=== PATIENT | male | born 1990 | race Caucasian/White ===

== ENCOUNTER → 2018-06-28 | Outpatient (CLI) | payer BC ==
--- NOTE | 2018-06-28 11:22 | US ---
EXAMINATION TYPE: US abdomen complete DATE OF EXAM: 06/28/2018 COMPARISON: NONE CLINICAL HISTORY: R11.0 NAUSEA. Abdomen pain after eating, loss of appetite, IBS EXAM MEASUREMENTS: Liver Length: 15.9 cm Gallbladder Wall: 0.2 cm CBD: 0.3 cm Spleen: 12.3 cm Right Kidney: 11.5 x 6.6 x 5.5 cm Left Kidney: 11.2 x 5.5 x 5.5 cm Pancreas: visualized portions wnl, limited by overlying midline bowel gas Liver: Within normal limits Gallbladder: wnl Evidence for sonographic Osorio's sign: no CBD: visualized portions wnl, limited by overlying bowel gas Spleen: 3.5 x 4.5 x 3.3cm irregular hypoechoic cystic area directly adjacent to the spleen appears p eripherally calcified. Right Kidney: wnl Left Kidney: wnl Upper IVC: wnl Abd Aorta: visualized portions wnl, limited by overlying midline bowel gas The liver is homogenous. The intrahepatic portion of the IVC and proximal abdominal aorta are within normal limits. There is no evidence of cholelithiasis. Common bile duct is unremarkable. The visu alized portions of the pancreas are homogenous. Kidneys are symmetric and free of hydronephrosis. No renal lesions are seen. IMPRESSION: 1. Peripherally calcified structure directly adjacent to the spleen could represent calcified acquire d benign splenic cyst, mesenteric mass, or less likely peripherally calcified and thrombosed splenic arterial pseudoaneurysm. This could be further assessed with CT with contrast. 2. No sonographic evidence of cholelithiasis or acute cholecystitis.
== END | disposition home or self-care (01) ==
LOC: RADUSWWP 09:49
PROVIDERS: ATTEND Family Medicine
DX: R93.3 Abnormal findings on diagnostic imaging of other parts of digestive tract (principal)
CPT/HCPCS: 76700

== ENCOUNTER → 2018-07-10 | Outpatient (CLI) | payer BC ==
--- NOTE | 2018-07-10 10:16 | CT ---
EXAMINATION TYPE: CT abdomen w con DATE OF EXAM: 07/10/2018 COMPARISON: Correlation ultrasound 06/28/2018 HISTORY: 27-year-old male Splenomegaly, not elsewhere classified TECHNIQUE: Contiguous axial scanning of the abdomen and pelvis following administration of 100 ml Iso massiel 300 IV contrast. Delayed images through the kidneys and coronal/sagittal reconstructions perform ed. CT DLP: 1296 mGycm Automated exposure control for dose reduction was used. FINDINGS: Heart normal size without pericardial effusion. Lung bases clear without pleural effusion. A 1 cm focally arterially enhancing lesion anterior left liver lobe equilibrates on the delayed kidne y images suggesting an area of vascular shunting or large filling hemangioma. A small FNH is also in the differential. No other focal liver lesion. No biliary ductal dilatation. Portal venous system is patent. Gallbladder, adrenal glands, kidneys, and pancreas appear within normal limits. Small 1.2 cm cyst lower pole of the spleen in additional multiple adjacent cysts in the upper pole of the spleen which would like her to get dimension of 11.2 cm wide by 5.4 cm AP by 4.9 cm craniocaudal . The largest locular component measures 4.9 cm and the cysts show varying thin peripheral wall calci fication. No dilated small bowel, free fluid, or free air. Scattered nonenlarged and some borderline to mildly enlarged mesenteric lymph nodes measuring up to 1 .1 cm in the left mid abdomen. The remaining lymph nodes are relatively small. Normal appendix partially visualized. Mild to moderate stool burden. No pericolonic inflammatory change seen within the visualized upper an d mid abdomen. Bones: Mild multilevel degenerative disc disease. Limbus L5 vertebra. IMPRESSION: 1. MULTIPLE ADJACENT CYSTS IN THE UPPER POLE OF THE SPLEEN DEMONSTRATE THIN WALL CALCIFICATIONS, POSS IBLE ACQUIRED BENIGN SPLENIC CYSTS SUCH IN THE SETTING OF A REMOTE SPLENIC INJURY. THE OVERALL AGG REGATE DIMENSION IS UP TO 11.2 CM WITH INDIVIDUAL CYSTS MEASURING UP TO 4.9 CM. 2. A 1 CM ARTERIAL ENHANCING LESION ANTERIOR LEFT LIVER LOBE. DIFFERENTIAL CONSIDERATIONS INCLUDE TINA IGN ENTITIES SUCH VASCULAR SHUNTING, FLASH FILLING HEMANGIOMA, AND A SMALL FNH. 3. SOME BORDERLINE TO MILDLY ENLARGED MESENTERIC LYMPH NODES PROBABLY REACTIVE/POST INFLAMMATORY.
== END | disposition home or self-care (01) ==
LOC: RADCTMAIN 08:43
PROVIDERS: ATTEND Family Medicine
DX: D73.4 Cyst of spleen (principal); K76.9 Liver disease, unspecified; D18.09 Hemangioma of other sites; D73.89 Other diseases of spleen
CPT/HCPCS: 74160; Q9967

== ENCOUNTER → 2020-06-08 | Outpatient (CLI) | payer BC ==
[2020-06-08 20:46] LABS: African American GFR (CKD) 115.7 (60.0-200.0); Albumin 4.8 g/dL (3.80-4.90); Albumin/Globulin Ratio 2.67 (1.60-3.17); Anion Gap 5.8 mmol/L (4.00-12.00); Calcium 9.8 mg/dL (8.7-10.3); Carbon Dioxide 30.2 mmol/L (21.6-31.8); Chol/HDL Ratio 3.25; Globulin 1.8 g/dL (1.6-3.3); LDL Cholesterol,Calculated 85.6 mg/dL (0.0-131.0); Non-African American GFR(CKD) 99.8 (60.0-200.0); Potassium 4.9 mmol/L (3.5-5.5); Total Bilirubin 0.6 mg/dL (0.2-1.2); Total Protein 6.6 g/dL (6.2-8.2); VLDL Calculation 13.4 mg/dL (5.00-40.00)
[2020-06-09 17:07] LABS: Hepatitis A Antibody IgM Non-Reactive (Non-Reactive); Hepatitis B Core IgM Non-Reactive (Non-Reactive); Hepatitis B Surface Antigen Non-Reactive (Non-Reactive); Hepatitis C IgG Antibody Non-Reactive (Non-Reactive)
== END | disposition home or self-care (01) ==
LOC: LABWHC1 10:45
PROVIDERS: ATTEND Internal Medicine
DX: Z00.00 Encounter for general adult medical examination without abnormal findings (principal); G47.00 Insomnia, unspecified
CPT/HCPCS: 36415; 80053; 80061; 80074

== ENCOUNTER → 2020-06-23 | Outpatient (CLI) | payer BC ==
--- NOTE | 2020-06-23 12:20 | US ---
EXAMINATION TYPE: US liver DATE OF EXAM: 06/23/2020 COMPARISON: NONE CLINICAL HISTORY: Abnormal Liver Function R94.5. 1 episode of elevated LFT's EXAM MEASUREMENTS: Liver Length: 16.8 cm. This is enlarged. Normal less than 15.5 cm. Gallbladder Wall: 0.3 cm CBD: 0.5 cm Right Kidney: 11.8 x 6.1 x 5.3 cm Pancreas: wnl Liver: wnl Gallbladder: neck fold seen, wnl Evidence for sonographic Osorio's sign: no CBD: wnl Right Kidney: wnl IMPRESSION: 1. Mild hepatomegaly.
== END ==
LOC: RADUSWWP 11:09
PROVIDERS: ATTEND Internal Medicine
DX: R16.0 Hepatomegaly, not elsewhere classified (principal)
CPT/HCPCS: 76705

== ENCOUNTER → 2020-07-09 | Outpatient (CLI) | payer BC ==
--- NOTE | 2020-07-09 11:36 | CONS ---
CONSULTATION DATE OF SERVICE: 07/09/2020 This 29-year-old gentleman had been evaluated in the sleep center for possible obstructive sleep apnea-hypopnea syndrome. HISTORY OF PRESENT ILLNESS/SLEEP-WAKE EVALUATION: Patient usual sleep schedule from 10 p.m. until midnight and he gets up at 8:15 a.m. No problem with falling asleep. Patient usually sleeps on the back and side position. He has loud snoring and witnessed episodes of stopped breathing during sleep according to his girlfriend. The patient wakes up from sleep up to 5 times with up to 5 episodes of nocturia, positive history of panic attacks at night, awakenings with dry mouth. In the morning, patient wakes up tired, has problems with the memory, irritability, anxiety, worry about his sleep. [place] Sleepiness Scale is 7. PAST MEDICAL HISTORY: Positive for irritable bowel syndrome, fatty liver, episodes of depression and anxiety. PAST SURGICAL HISTORY: Tonsillectomy, adenoidectomy. MEDICATIONS: Imodium out of the counter every day. SOCIAL HISTORY: Positive for smoking for 2 years, quit 4 years ago. Alcohol consumption occasional. FAMILY HISTORY: Sleep apnea, diabetes, depression, hyperlipidemia, arthritis. REVIEW OF SYSTEMS: Multiple awakenings from sleep, loud snoring. The patient takes naps on days off at 3 p.m. PHYSICAL EXAMINATION: GENERAL: gentleman without distress. VITAL SIGNS: BP 158/81, HR 85, RR 16, height 5 feet 11-1/4 inches, body mass index 44.3, temperature 97.7, oxygen saturation at room air 98%. HEENT: PERRLA, EOMI. Oropharynx extremely low position of soft palate. Mallampati 4. Extremely wide neck 19-3/4 inches in circumference. NECK: Supple, no JVD. Thyroid is not palpable. LUNGS: Clear to percussion and to auscultation. Good air exchange. No wheezing or rhonchi. HEART: S1, S2 regular. No murmurs, gallops, or rubs. ABDOMEN: Obese. EXTREMITIES: No clubbing or cyanosis. 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 Cranial nerves 2 to 7 intact. There is no fasciculation or atrophy. noted. No focal deficits observed. IMPRESSION: 1. Loud snoring, witnessed episodes of stopped breathing during sleep, multiple awakenings from sleep, extremely low position of soft palate, Mallampati 4, wide neck, obstructive sleep apnea-hypopnea syndrome. 2. Hypertension in the office. 3. Irritable bowel syndrome. 4. History of fatty liver disease. 5. Status post tonsillectomy. 6. Status post adenoidectomy. PLAN: 1. Home sleep apnea test for evaluation of patient breathing during sleep and to confirm obstructive sleep apnea-hypopnea syndrome. 2. CPAP/BiPAP titration if sleep study confirms obstructive sleep apnea-hypopnea syndrome. 3. Preferable position during sleep on the side. 4. No driving if patient feels any sleepiness. 5. I will see patient for follow up visit to explain results of testing and following plan. Thank you very much for referring this patient for consultation. Sincerely, Merrill Dumas MD, PhD, FAASM Diplomat of [employer] [employer] Consultant [facility] [place] MMODL / NOLAN: [id number] /
== END | disposition home or self-care (01) ==
LOC: SLEEP 10:22
PROVIDERS: ATTEND Internal Medicine
DX: G47.33 Obstructive sleep apnea (adult) (pediatric) (principal); I10 Essential (primary) hypertension; K58.9 Irritable bowel syndrome, unspecified; Z90.89 Acquired absence of other organs; Z87.19 Personal history of other diseases of the digestive system
CPT/HCPCS: 99211

== ENCOUNTER → 2020-08-31 | Outpatient (CLI) | payer BC ==
[2020-08-31 10:43] VITALS: BP 163/101; PULSE 85; RESP 16; TEMP 98.3
--- NOTE | 2020-08-31 11:26 | P.PAINCN ---
History of Present Illness - Reason for Consult Consult date: 08/31/20 - History of Present Illness Nacho is a 29-year-old gentleman who presents today for an initial consult secondary to right-sided neck pain. He has had this pain for a few months, he had made an appointment to see us in a few months back but then contracted Covid so he was home for a little while. 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 He reports that one day whe n he was exercising he developed a sharp severe pain in the right side of his neck that extended from the posterior cervical spine to the collarbone on the right. There was some pain into the collarbone and chest wall and into the right shoulder. There is no pain that extended beyond their into the right arm. There is nothing the left arm. There is no weakness in his hands or his service cleaner strength. There is no lower extremity weakness numbness or tingling. The pain was worse with any movement of his head which included flexion and extension. During the Covid quarantine he did not exercise and begin to feel a little bit better. He had seen Dr. french would order an MRI of the cervical spine. The MRI shows a small disc bulge at the right C5-C6 level. He was using nonsteroidal anti-inflammatories as well as muscle relaxants. He has a history of opioid abuse in the past and does not want any opiates. He continues to work full-time and is exercising regularly. His exercise routines involved very heavy lifting of greater than 500 pounds of lifting and squatting. His blood pressure slightly elevated today. He also was recently diagnosed with severe sleep apnea and is not received his CPAP machine yet, he like to have that as soon as possible. He also had questions regarding exercises as well as dietary changes, he reports that he's been taking sodium tablets to try to improve his muscle health. He is inquiring about using potassium supplements as well. I've asked him to follow- up with his primary care physician to evaluate his sodium and potassium levels. This is not a my specialty and I believe he needs further follow-up to be evaluated if these supplements are useful for him. I explained that his blood pressure is significantly elevated today at 163/100 and this may be reason for that along with his untreated sleep apnea. Review of Systems: Denies any New chest pain, short of breath, Nausea/vomitting, abdominal pain, bowel or bladder incontinence, or any overt new neurologic symptoms in the upper or lower extremities outside of what is noted in the HPI Past Medical History Past Medical History: GERD/Reflux, Musculoskeletal Disorder, Sleep Apnea/CPAP/BIPAP Additional Past Medical History / Comment(s): Sleep apnea testing ongoing. Mild fatty liver. Hx Covid 07/30/20. c/o neck pain radiating Rt shoulder pain, C5-6 bulge per MRI. History of Any Multi-Drug Resistant Organisms: None Reported Past Surgical History: Adenoidectomy, Tonsillectomy Additional Past Surgical History / Comment(s): Colonoscopy Past Anesthesia/Blood Transfusion Reactions: No Reported Reaction Past Psychological History: No Psychological Hx Reported Smoking Status: Former smoker Past Alcohol Use History: Occasional Additional Past Alcohol Use History / Comment(s): Smoked 2-3 years, quit 2016. Past Drug Use History: Prescription Drug Abuse Additional Drug Use History / Comment(s): hx in his 20's, none since 2017 Medications and Allergies Home Medications Medication Instructions Recorded Confirmed Type Collagen Powder 1 applic PO DAILY 08/27/20 History Ibuprofen [Motrin Ib] 800 mg PO Q8H PRN 08/27/20 08/27/20 History Loperamide HCl [Imodium A-D] 2 mg PO DIRECTED PRN 08/27/20 08/27/20 History Multivitamins, Thera [Multivitamin 1 tab PO DAILY 08/27/20 08/27/20 History (formulary)] Omeprazole Magnesium [PriLOSEC OTC] 20 mg PO DAILY 08/27/20 08/27/20 History Sodium Chloride Tab 394 mg PO DIRECTED PRN 08/27/20 08/27/20 History Turmeric/Apple Vinega/Enma 2 tab PO DAILY 08/27/20 History tiZANidine [Zanaflex] 4 mg PO DIRECTED PRN 08/27/20 08/27/20 History Allergies Allergy/AdvReac Type Severity Reaction Status Date / Time No Known Allergies Allergy Verified 08/27/20 15:49 Physical Exam Vitals: Vital Signs Temp Pulse Resp BP Pulse Ox 08/31/20 10:37 98.3 F 85 16 163/101 95 PHYSICAL EXAM: Constitutional: Awake and alert no distress Cardiovascular exam: Regular rate, no lower extremity edema, palpable pulses bilaterally Respiratory exam: No audible wheezing, no accessory muscle usage Abdominal exam: Soft nontender Muscular skeletal exam: - Cervical spine: Nontender to palpation bilaterally. Range of motion is not limited. Spurling is negative bilateral. Facet loading is negative bilaterally. No tenderness to palpation over the clavicles bilaterally. There is no tenderness over the SCM muscles or over the scalene muscles. - Bilateral shoulder range of motion is not limited and do not cause pain. - Lumbar spine: Preserved lumbar lordosis. No changes in skin. Nontender palpation bilateral. Patient has full range of motion in flexion and extension as well as lateral sidebending. Straight leg raise is negative. Facet loading is negative. Nontender over the SI joints Neuro exam: Normal sensation bilateral upper and lower extremities. Deep tendon reflexes are 2+ bilaterally. Hull's is negative Psychiatric exam: Cooperative, good insight Assessment and Plan Assessment: #1 cervical myofascial pain #2 cervical degenerative disc disease #3 cervical radiculopathy #4 severe obstructive sleep apnea Plan: At this point the patient reports that his pain is under good control, he has a VAS of 1 or 2 out of 10 regularly. He is working on his exercise routine to avoid any significant strain. In my opinion I discussed with him that his MRI findings do not correlate with his symptoms. He has no symptoms going down his arm or into his hand. If he had this severe pain in the neck was likely musculoskeletal in nature given the extent of his exercise routine. That lifting greater than 500 pounds since early plus a lot of strain on the cervical spine muscles at the exception of the left. I would avoid lifting heavy weights but the patient likely continue doing these at this is his sport of choice. I've explained that this pain may come back and if it's the same pain is had in the past is likely due to a musculoskeletal injury. We are happy to see him at any time. If the pain radiates into the shoulder into the arm that may be a sign of further symptoms from his cervical radiculopathy and then he would be a candidate for a cervical epidural steroid injection. I have spent 51 minutes on patient care today. The time was used to review the medical records including relevant urine studies and Prescription history (MAPs), review of the available imaging, evaluation and examination of the patient, coordination of care with the medical staff and if applicable referring physicians, as well as creation of the medical record. NO Prescriptions were given on today's visit PQRS Measure Charge Sheet PQRS Narrative: Blood Pressure 163/101 Pain Intensity [Neck] 1 Scale Used Numeric (1 - 10) Hx Alcohol Use (MH) Yes: occ Home Medications: Ambulatory Orders Collagen Powder 1 applic PO DAILY 08/27/20 Ibuprofen [Motrin Ib] 800 mg PO Q8H PRN 08/27/20 Loperamide HCl [Imodium A-D] 2 mg PO DIRECTED PRN 08/27/20 Multivitamins, Thera [Multivitamin (formulary)] 1 tab PO DAILY 08/27/20 Omeprazole Magnesium [PriLOSEC OTC] 20 mg PO DAILY 08/27/20 Sodium Chloride Tab 394 mg PO DIRECTED PRN 08/27/20 Turmeric/Apple Vinega/Enma 2 tab PO DAILY 08/27/20 tiZANidine [Zanaflex] 4 mg PO DIRECTED PRN 08/27/20
== END ==
LOC: PNWHC3 10:20
PROVIDERS: ATTEND Hospitalist
DX: M50.10 Cervical disc disorder with radiculopathy, unspecified cervical region (principal); M79.18 Myalgia, other site; G47.33 Obstructive sleep apnea (adult) (pediatric); K21.9 Gastro-esophageal reflux disease without esophagitis; Z87.891 Personal history of nicotine dependence
CPT/HCPCS: 99211

== ENCOUNTER → 2020-10-13 | Outpatient (CLI) | payer BC ==
--- NOTE | 2020-10-13 13:41 | XR ---
Lumbar spine HISTORY: Trauma one week prior, M 54.5 3 views of the lumbar spine No comparisons There is a slight spinal curvature. Retrolisthesis grade 1 L5-S1. Superior anterior endplate of L5 is irregular, possibly congenital abnormality, limits vertebral. Loss of disc height present at interve rtebral levels. Probable Schmorl's node present superior endplate L3. Sclerosis present in the parish visitor ior elements of the lumbosacral junction consistent with facet arthropathy, there is multilevel spond ylosis. IMPRESSION: Degenerative disc disease and facet arthropathy. Possible limbus vertebra L5, correlate t o exclude history trauma, superior endplate fracture, consider lumbar MRI or bone scan, CT. Mild spin al curvature.
== END | disposition home or self-care (01) ==
LOC: RADXRMAIN 12:36
PROVIDERS: ATTEND Physician Assistant
DX: M51.36 Other intervertebral disc degeneration, lumbar region (principal); M12.88 Other specific arthropathies, not elsewhere classified, other specified site
CPT/HCPCS: 72100

== ENCOUNTER → 2020-11-11 | Outpatient (CLI) | payer BC ==
--- NOTE | 2020-11-11 20:27 | SFUN ---
SLEEP CENTER FOLLOW UP NOTE DATE OF SERVICE: 11/11/2020 29-year-old gentleman has been followed in Sleep Center for treatment of obstructive sleep apnea-hypopnea syndrome. Today is his 1st visit after patient started to use CPAP equipment. Previously, patient had a sleep study, which showed extremely severe obstructive sleep apnea with apnea-hypopnea index 74.1, and oxygen desaturation to 65%. Subsequently, patient was started on the BiPAP. When he is using BiPAP, he sleeps better and feels more refreshed in the morning after awakening. His [place] Sleepiness Scale today is 9. I checked BiPAP unit, maximal inspiratory pressure 21, minimal expiratory pressure 12, average pressure 7.3 over 13.3 cm of water, usage for the last month, 22/30 nights but only 7 nights more than 4 hours. Leak is 32 L/minute, which is borderline. Apnea- hypopnea index only 2.9, which is totally normal. MEDICATIONS: Imodium. PHYSICAL EXAM: Patient in no distress, BP 148/94, HR 76, RR 15, weight 313, temperature 98.0, oxygen saturation at room air 97%. HEENT: Oropharynx, extremely low position of soft palate. Mallampati IV. PERRLA, EOMI, evaluation of oropharynx showed tongue protrudes midline. NECK: Supple, no JVD. Thyroid is not palpable. LUNGS: Clear to percussion and to auscultation. Good air exchange. No wheezing or rhonchi. HEART: S1, S2 regular. No murmurs, gallops, or rubs. ABDOMEN: Obese. Soft and nontender. Bowel sounds are present. No organomegaly appreciated. EXTREMITIES: No clubbing or cyanosis. 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 Cranial nerves 2 to 7 intact. There is no fasciculation or atrophy. noted. No focal deficits observed. ASSESSMENT: 1. Extremely severe obstructive sleep apnea-hypopnea syndrome; apnea-hypopnea index 74.1 with oxygen desaturation to 65% normal respiration on BiPAP. Borderline compliance. The patient needs increased time for usage of BiPAP equipment during the night. 2. Obesity. 3. Hypertension in the office again today. 4. History of irritable bowel syndrome. 5. History of fatty liver disease. 6. Status post tonsillectomy. 7. Status post adenoidectomy. PLAN: 1. Patient will continue to use PAP equipment every night for the whole night. 2. Sleep hygiene with regular time in bed for at least 7-1/2 to 8 hours. 3. Precautions related to driving. No driving if feeling sleepiness. 4. I will maintain all necessary prescription for PAP supplies including mask, tube, filters. 5. Watching weight. 6. Follow-up visit in 6 months or earlier if patient has any problems. Thank you very much for allowing me to participate in management of your patient. Sincerely, Merrill Dumas MD, PhD, FAASM Diplomat of [employer] Sleep Medicine Board of [employer] Software Team Leader of [facility] [place] MMODL / IJN: [id number] /
== END ==
LOC: SLEEP 11:43
PROVIDERS: ATTEND Internal Medicine
DX: G47.33 Obstructive sleep apnea (adult) (pediatric) (principal); G47.36 Sleep related hypoventilation in conditions classified elsewhere; E66.9 Obesity, unspecified; I10 Essential (primary) hypertension; Z90.09 Acquired absence of other part of head and neck; Z99.89 Dependence on other enabling machines and devices; Z87.19 Personal history of other diseases of the digestive system

== ENCOUNTER → 2022-04-11 | Outpatient (CLI) | payer BC ==
[2022-04-11 13:37] VITALS: BP 149/73; PULSE 108; RESP 16; TEMP 98.8
--- NOTE | 2022-04-11 15:02 | P.PAINPG ---
PQRS Measure Charge Sheet Comment: A 31 yr old male with a history of severe and chronic low back pain secondary to lumbar DDD and spondylosis with facet arthropathy without myelopathy presents today for LBP evaluation. Pain level is currently at 6 /10 in intensity, constant, localized in the lower lumbar spine, dull/ achy in character w adia oting towards the R glute. Pain is provoked by lifting. Pain is alleviated with PT which he will start this week, massage therapy semi weekly, chiropractic treatments semi weekly, ice, medications, topicals, home exercise regimen as tolerated. Interventional pain procedures completed include Denies Patient is currently on Prednisone taper, [place], Ibu prn Patient denies any side effects of the medication(s), denies excessive drowsiness or sleepiness, denies suicidal ideation and reports that the current pain medication is helping to control the pain and improve activities of daily living. Patient denies any motor or sensory deficits. Patient denies any fever or night sweats, denies any change in the bowel movements or urination. Physical Examination: -Constitutional: Cooperative. Not in acute distress . - Neurologic: Cranial nerve II to XII intact. No focal neurological deficits. - Psychatric: Alert & oriented x 3. Matching mood & appropriate affect. Judgment and insight intact. - Musculoskeletal: Cervical spine: Muscle bulk/ tone/ strength in the bilateral upper extremities normal Vertebral body tenderness to palpation over Spurling test positive Distraction test positive Facet loading test positive Thoracic spine Muscle bulk / tone/ strength in the bilateral paraspinal muscles normal Vertebral body tender to palpation over Facet loading test positive Lumbar spine: Motor bulk/ tone/ strength lower extremities , thigh and legs : 5/5 Deep tendon reflexes : Normal Knee Jerk. Normal Ankle Jerk . Vertebral body tenderness to palpation over L5 Lumbar Facet Loading Test positive Straight Leg Raise: positive at 30 degrees right side/ left side Gaenslen's Test positive Sacral spine : Severe tenderness over the Sacroiliac joint: right side / left side Range of motion: Flexion of the lumbar spine <60 degrees Range of motion: Extension of the lumbar spine <20 degrees Gaenslen's Test positive Yuri test: positive right side / left side Thigh Thrust Test Sacral Thrust Test Imaging: x ray of the lumbar spine from 10/13/20 reviewed MRI without contasrt of the lumbar spine from 03/23/22 reviewed Assessment and plan: Chronic LBP secondary to lumbar retrolisthesis, spondylosis with facet arthropathy without myelopathy Recommendation of R paramedian ALEX L5-S1. May need a series of injections, up to 3 within a 6 mo period, for optimal pain relief. Risks, benefits of procedure discussed and pt verbalized understanding. Denies anticoagulant use or medical history of diabetes. All patient questions answered I have spent less than 30 minutes on patient care today. Dr Kelley was available by phone for the evaluation of this patient. The time was used to review the medical records including relevant urine studies and Prescription history (MAPs), review of the available imaging, evaluation and examination of the patient, coordination of care with the medical staff and if applicable referring physicians, as well as creation of the medical record - Pain Location Lower Back Non-Pharmacological Interventions: Chiropractic Treatment, Home Exercise, Ice, Inactivity, Massage, Position/Reposition, Sitting, Stretching Pharmacological Interventions: PRN Medication, Topical Medication PQRS Narrative: Hx Alcohol Use (MH) Yes: occ Home Medications: Ambulatory Orders Collagen Powder 1 applic PO DAILY 08/27/20 Ibuprofen [Motrin Ib] 800 mg PO Q8H PRN 08/27/20 Loperamide HCl [Imodium A-D] 2 mg PO DIRECTED PRN 08/27/20 Multivitamins, Thera [Multivitamin (formulary)] 1 tab PO DAILY 08/27/20 Omeprazole Magnesium [PriLOSEC OTC] 20 mg PO DAILY 08/27/20 Sodium Chloride Tab 394 mg PO DIRECTED PRN 08/27/20 Turmeric/Apple Vinega/Enma 2 tab PO DAILY 08/27/20 tiZANidine [Zanaflex] 4 mg PO DIRECTED PRN 08/27/20 Controlled Substance Measures - Controlled Substance Measures Is patient prescribed a controlled substance at discharge?: No
== END ==
LOC: PNWHC3 12:59
PROVIDERS: ATTEND Specialist
DX: M47.816 Spondylosis without myelopathy or radiculopathy, lumbar region (principal); G89.29 Other chronic pain; M51.36 Other intervertebral disc degeneration, lumbar region
CPT/HCPCS: 99211

== ENCOUNTER 2022-05-17 13:17 | Day surgery (SDC) | payer BC ==
[2022-05-12 15:26] VITALS: BMI 42.0
[2022-05-17] MEDS ORDERED: LIDOCAINE 1% (10MG/ML) FOR IV START INTRADERMA PRN (13:25)
[2022-05-17] MEDS ORDERED: LACTATED RINGERS 1,000 ML IV SCH (13:25)
[2022-05-17 13:31] VITALS: TEMP 98.6
[2022-05-17 13:40] LABS: Glucose,Whole Blood 94 mg/dL (70-110)
[2022-05-17] MEDS ORDERED: methylPREDNISolone ACETATE 80 MG/ML 1 ML VIAL ONE (14:22)
[2022-05-17] MEDS ORDERED: fentaNYL (PF) 50 MCG/ML 2 ML AMP ONE (14:22)
[2022-05-17] MEDS ORDERED: MIDAZOLAM 2 MG/2 ML VIAL ONE (14:22)
[2022-05-17] MEDS ORDERED: IOPAMIDOL M200 10 ML VIAL ONE (14:22)
--- NOTE | 2022-05-17 14:32 | P.PCN ---
Date of Procedure: 05/17/22 Procedure(s) Performed: PREOPERATIVE DIAGNOSIS: 1- Lumbar Degenerative Disc Diseases 2-Lumbar spondylosis with Facet arthropathy without myelopathy. 3-lumbar radiculopathy POSTOPERATIVE DIAGNOSIS: Same as preop diagnosis. PROCEDURE 1. Lumbar epidural steroid injection under fluoroscopic guidance at the L5-S1 level. (Fluoroscopy imaging was available in radiology department) 2. Lumbar epidurogram. ANESTHESIA: moderate sedation with intravenous Versed 2 mg ,and fentanyle 100 Mcg Sedation start time : 1424 Sedation end time : 1428 EBL: Minimal PROCEDURE INDICATION: The patient with low back pain and radiculitis symptoms unresponsive to conservative treatment. Fluoroscopy was used to optimize visualization of the needle placement and to maximize safety. PROCEDURE DESCRIPTION / TECHNIQUE: The patient was seen and identified in the preoperative area. Risks, benefits, complications including but not limited to infections ,bleeding ,allergic reaction to the medications ,nerve damage and not complete pain releife , and alternatives were discussed with the patient. The patient agreed to proceed with the procedure and signed the consent. IV was started, and vital signs were stable. Patient was taken to the OR and time out was completed. The patient was placed in the prone position on procedure table and a pillow was placed under the abdomen to reduce lumbar lordosis. The lumbosacral area was prepped and draped in the usual sterile fashion.ere closely monitored during the procedure. Conscious sedation was used during the procedure to decrease patients anxiety. Vital signs was monitered during the entire procedure. Using anterior-posterior fluoroscopy, the L5-S1 interlaminar space was identified and the skin over this site was marked and then infiltrated with 1% lidocaine subcutaneously. Subsequently, a 20-gauge Tuohy epidural needle was inserted and advanced toward the epidural space using the ``Loss of resistance technique and guided by AP and lateral fluoroscopy. The correct needle position in the epidural space was verified with the injection of 2 mL of the water soluble contrast dye Isovue 200 contrast and observing an excellent epidurogram with the epidural spread of the dye, after negative aspiration for blood and CSF and in the absence of paresthesias. Again after negative aspiration, a 6 ml mixture containing 80 mg of Depo-medrol ( Preservetive Free ), and 2 ml of preservative free Normal Saline, and 2 ml of preservative free lidocaine 1% solution was injected and a washout of epidurogram was seen. Needle was withdrawn intact, skin was cleansed, and bandages were applied. COMPLICATIONS: None DISPOSITION / PLANS: The patient was placed in a supine position and transferred to the recovery area in a stable condition for observation. There was no evide nce of lower extremity motor or sensory deficit after the procedure. Patient was discharged from the recovery room after meeting discharge criteria. Home discharge instructions were given to the patient by the staff. The patient was reexamined prior to discharge. The patient will schedule a follow up in the clinic in 2-4 weeks.
[2022-05-17] MEDS ORDERED: IV FLUID CONTINUATION 600 ML IV ONE (14:35)
[2022-05-17 14:41] VITALS: RESP 18
[2022-05-17 14:58] VITALS: BP 141/83; PULSE 84
--- NOTE | 2022-05-17 15:07 | FL ---
EXAMINATION TYPE: FL guided pain mgmt statistic DATE OF EXAM: 05/17/2022 CLINICAL HISTORY: Low back pain. TECHNIQUE: Fluoroscopy. COMPARISON: None. FINDINGS: Fluoroscopic guidance was provided during pain relief procedure performed by Dr. Kelley . A total of 1 seconds of fluoroscopic time was utilized during the procedure and 1 spot images are acquired. Single image acquired shows needle localization at level of lower lumbar spine . IMPRESSION: As Above.
== END 2022-05-17 15:08 | disposition home or self-care (01) ==
LOC: ORPAIN 13:17
PROVIDERS: ATTEND Specialist
DX: M51.16 Intervertebral disc disorders with radiculopathy, lumbar region (principal); M47.26 Other spondylosis with radiculopathy, lumbar region
CPT/HCPCS: 62323

== ENCOUNTER 2022-09-20 11:53 | Day surgery (SDC) | payer BC ==
[2022-09-15 12:29] VITALS: BMI 44.7
[2022-09-20 12:39] VITALS: TEMP 97.2
[2022-09-20] MEDS ORDERED: LACTATED RINGERS 1,000 ML IV ONE (12:45)
[2022-09-20] MEDS ORDERED: methylPREDNISolone ACETATE 80 MG/ML 1 ML VIAL ONE (12:52)
[2022-09-20] MEDS ORDERED: ROPIVACAINE 5 MG/ML 20 ML AMPULE ONE (12:52)
[2022-09-20] MEDS ORDERED: MIDAZOLAM 2 MG/2 ML VIAL ONE (12:52)
[2022-09-20] MEDS ORDERED: fentaNYL (PF) 50 MCG/ML 2 ML AMP ONE (12:52)
--- NOTE | 2022-09-20 13:06 | P.PCN ---
Date of Procedure: 09/20/22 Procedure(s) Performed: PREOPERATIVE DIAGNOSIS : 1- Lumbar spondylosis with Facet Arthropathy without myelopathy . 2- Lumber degenerative disc disease POSTOPERATIVE DIAGNOSIS: 1- Lumbar spondylosis with Facet Arthropathy without myelopathy . 2- Lumber degenerative disc disease PROCEDURE: Diagnostic bilateral L3 , L4 , and L5 medial branch block under fluoroscopy guidance(fluoroscopy images available in the radiology Department ) ( To target the facet joint between Bilateral L4-5 , and L5-S1 )# 1st ANESTHESIA:, moderate sedation with intravenous Versed 2 mg and Fentanyl 100 mcg. Patient is started at 1252, end 1309 EBL: Minimal COMPLICATION: None PROCEDURE INDICATION: Chronic low back pain secondary to Facet arthropathy unresponsive to conservative treatment. PROCEDURE DESCRIPTION: the patient was seen and identified in the preop holding area , risks and benefits and possible complications of the procedure and alternative were discussed with the patient, and the patient agreed to proceed with the procedure and signed the consent and vital signs monitored during the procedure and fluoroscopy was used to maximize the benefit and accuracy of the needle placement, and sedation was given to decrease patient anxiety, patient was taken to the procedure room and placed in prone position vital signs monitored in the back prepped with chlorhexidine X3 then under strict sterile technique using a right oblique fluoroscopy ,the junction of the transverse process and the superior articulating process of the right L3 , L4 , and L5 vertebra which corresponding to the fluoroscopy image of the eye of the Elpidio dog on the block side for the medial branches and subsequently , after local infiltration of skin and subcu tissuies with Ropivacaine 0.5 % , one mL at each level ,then 22-gauge 5 inches long Quincke-type needles , 3 needle was used , each one of them placed at the junction of the base of the transverse process and the superior articular process at the appropriate level, and the needle was advanced until the periosteum contacted, needle placement confirmed with AP oblique and lateral view and after appropriate needle placement confirmed, and after negative aspiration for heme and CSF and there was no paresthesia 1-1/2 mL of Ropivacaine 0.5% mixed with 40 mg Depo-Medrol , then half mL injected at each level after negative aspiration the needle subsequently removed and the same procedure repeated for the left side at left side at L3 , L4 and L5 levels. At the end of the procedure and the needles removed and a bandage applied after the skin was cleaned the cleaning solution patient taken to recovery room in stable condition and monitors in the recovery room for 20-30 minutes and discharged home in stable condition after discharge criteria met and patient will follow up with the pain clinic in 2-4 weeks
[2022-09-20] MEDS ORDERED: IV FLUID CONTINUATION 700 ML IV ONE (13:11)
[2022-09-20 13:16] VITALS: RESP 16
--- NOTE | 2022-09-20 13:18 | FL ---
Intraoperative/procedural fluoroscopic services were provided. Total fluoroscopy time is 12.8 seconds with a total of 4 submitted images to PACS. Please see the operative/procedural note for further det ails. DAP: [id number] [id number]
[2022-09-20] MEDS ORDERED: LIDOCAINE 1% (10MG/ML) FOR IV START INTRADERMA PRN (13:24)
[2022-09-20] MEDS ORDERED: LACTATED RINGERS 1,000 ML IV SCH (13:24)
[2022-09-20 13:32] VITALS: BP 151/88; PULSE 73
== END 2022-09-20 13:38 | disposition home or self-care (01) ==
LOC: ORPAIN 11:53
PROVIDERS: ATTEND Specialist
DX: M51.36 Other intervertebral disc degeneration, lumbar region (principal); M47.816 Spondylosis without myelopathy or radiculopathy, lumbar region; G89.29 Other chronic pain
CPT/HCPCS: 99152; 64493; 64494 ×2; J2250; J1040; J3010; J2795